=== PATIENT | male | born 1990 | race Caucasian/White ===

== ENCOUNTER 2018-03-12 11:56 | Emergency (ER) | payer SELFPAY ==
[~2018-03-12] VITALS: Ht 152.4 cm; Wt 56.7 kg
[2018-03-12 12:03] VITALS: BP 127/69; Ht 152.4 cm; Wt 56.7 kg
== END 2018-03-12 13:21 | disposition home or self-care (01) ==
LOC: ED 11:56
DX: S93.401A Sprain of unspecified ligament of right ankle, initial encounter (principal); X58.XXXA Exposure to other specified factors, initial encounter; Y93.71 Activity, boxing; Y92.89 Other specified places as the place of occurrence of the external cause; Y99.8 Other external cause status
CPT/HCPCS: Q0092